=== PATIENT | female | born 1950 | race Caucasian/White ===

== ENCOUNTER 2017-03-18 14:55 | Outpatient (CLI) | payer MEDICARE ==
--- NOTE | 2017-03-19 17:12 | Ultrasound Report ---
PELVIC ULTRASOUND: 03/18/2017 CLINICAL HISTORY: Pelvic pain. Patient's last menstrual cycle was 12 years ago. TECHNIQUE: Transabdominal pelvic ultrasound performed for global evaluation. Transvaginal pelvic ul trasound performed for detailed evaluation. Real-time scanning performed and static images obtained. The uterus measures 6.6 cm x 4.5 cm x 4.8 cm for a volume of 74.6 mL. In the anterior aspect of the uterine fundus is noted a mildly heterogeneous round mass that is displ acing the central inner uterine cavity posteriorly. This mass represents a uterine fibroid and measu res 4.3 cm x 3.4 cm x 4.2 cm. It is definitely an intramural fibroid. Since it does abut against th e anterior aspect of the central inner uterine cavity, cannot exclude the possibility of a submucous component. Within the cervix is a fluid collection within the cervical canal. This appears to be no n-complex fluid. Ovaries bilaterally are mildly atrophic. They have a normal parenchymal pattern. Right ovary measur es 2.4 cm x 1.5 cm x 1.7 cm for a volume of 3.2 mL. Left ovary measures 1.5 cm x 1.1 cm x 1.0 cm for a volume of 0.86 mL. No free fluid is noted in the cul-de-sac. IMPRESSION: UTERINE FUNDUS IS ENLARGED A RESULT OF AN INTRAMURAL FIBROID WITHIN ITS ANTERIOR ASPECT. THIS FIB ROID MEASURES 4.3 CM X 3.4 CM X 4.2 CM. IT PRODUCES MILD POSTERIOR DISPLACEMENT OF THE CENTRAL INNER UTERINE CAVITY. OVARIES BILATERALLY ARE MILDLY ATROPHIC AND WITHIN NORMAL LIMITS IN REGARD TO THEIR PARENCHYMAL PATTE RN. NONSPECIFIC, NON-COMPLEX FLUID IS NOTED PRODUCING MILD DISTENTION OF THE CERVICAL CANAL. JOB #: [id number] EXT JOB #:[id number]
== END 2017-03-18 14:56 | disposition home or self-care (01) ==
LOC: DI 14:55
PROVIDERS: ATTEND Nurse Practitioner Family
DX: D25.1 Intramural leiomyoma of uterus (principal); N83.312 Acquired atrophy of left ovary; N83.311 Acquired atrophy of right ovary
CPT/HCPCS: 76830; 76856

== ENCOUNTER 2017-11-26 10:18 | Outpatient (CLI) | payer MEDICARE ==
--- NOTE | 2017-11-26 19:52 | Ultrasound Report ---
DATE OF SERVICE: 11/26/2017 RIGHT BREAST ULTRASOUND: 11/26/2017 CLINICAL INDICATION: Painful palpable abnormality. TECHNIQUE: Real-time scanning was performed with financial representative static images obtained. Ultrasound of the region of painful palpable abnormality identified by the patient was performed. Heterogeneous parenchyma is seen. No discrete solid or cystic lesion is identified. No sonographically suspicious findings are appreciated. IMPRESSION: Negative examination. RECOMMENDATIONS: Routine annual screening unless otherwise clinically indicated. BIRADS category 1 negative. TD: 11/26/2017 20:51
--- NOTE | 2017-11-26 19:56 | Mammography Report ---
DATE OF SERVICE: 11/26/2017 DIGITAL DIAGNOSTIC BILATERAL MAMMOGRAM: 11/26/2017 CLINICAL INDICATION: Painful palpable abnormality 12 o'clock right breast. TECHNIQUE: Bilateral CC, laterally exaggerated CC, MLO views, right true lateral view. A marker was placed at the site of tender palpable abnormality identified in the right breast by the patient. The patient describes that the abnormality has become smaller and less painful over the intervening 2 weeks since it was discovered. COMPARISON: 06/18/2016, 02/25/2015, 03/11/2012, 01/02/2010. The breasts again demonstrate heterogeneously dense fibroglandular parenchyma bilaterally. Punctate, typically benign calcifications are present. No suspicious masses, clustered microcalcifications, or regions of architectural distortion are identified. Specifically, no mammographic abnormality is appreciated at the 12 o'clock position of the right breast, at the site indicated by the marker. Please also refer to right breast ultrasound of the same day. IMPRESSION: Benign findings. RECOMMENDATIONS: Routine annual screening unless otherwise clinically indicated. BIRADS category 2 benign findings. STANDARD QUALIFYING STATEMENTS 1. This examination was reviewed with the aid of Computed-Aided Detection (CAD). 2. A negative or benign imaging report should not delay biopsy if clinically suspicious findings are present. Consider surgical consultation if warranted. More than 5% of cancers are not identified by imaging. 3. Dense breasts may obscure an underlying neoplasm. TD: 11/26/2017 20:55
== END 2017-11-26 10:19 | disposition home or self-care (01) ==
LOC: DI 10:18
PROVIDERS: ATTEND Physician Assistant
DX: N64.4 Mastodynia (principal); N63.10 Unspecified lump in the right breast, unspecified quadrant
CPT/HCPCS: 76642; 77066

== ENCOUNTER 2018-03-04 11:16 | Outpatient (CLI) | payer MEDICARE ==
[2018-03-04] MEDS ORDERED: IOPAMIDOL-300 100 ML VIAL ONE (11:37)
[2018-03-04 12:01] LABS: CREATININE 0.6 mg/dL (0.4-1.0)
[2018-03-04] MEDS ORDERED: IOPAMIDOL-300 100 ML VIAL IVP ONE (12:25)
--- NOTE | 2018-03-04 12:48 | CT Report ---
CT NECK WITH CONTRAST: 03/04/2018 CLINICAL INDICATION: Neck infection, pharyngeal pain, swelling. TECHNIQUE: Axial CT images of the neck were obtained with 80 mL Isovue 300 intravenously. COMPARISON: No previous CT is available for comparison. FINDINGS: The visualized orbital structures are unremarkable. There is an air fluid level in the right maxillary sinus, with mucosal thickening, compatible with acute on chronic sinus disease. The salivary glands and thyroid gland appear unremarkable. There are mildly enlarged bilateral jugulodigastric lymph nodes. No pharyngeal abscess is identified. The prevertebral soft tissues are unremarkable. The trachea is widely patent. Limited evaluation of the lung apices demonstrates atelectasis. Osseous structures demonstrate degenerative changes. IMPRESSION: ACUTE ON CHRONIC RIGHT MAXILLARY SINUSITIS. MILDLY ENLARGED JUGULODIGASTRIC LYMPH NODES BILATERALLY, BUT NO EVIDENCE OF PHARYNGEAL ABSCESS. CT DOSE REDUCTION STATEMENT In accordance with CT protocol optimization, one or more of the following dose reduction techniques were utilized for this exam: automated exposure control, adjustment of mA and/or KV based on patient size, or use of iterative reconstructive technique. TD: 03/04/2018 12:48
== END 2018-03-04 11:17 | disposition home or self-care (01) ==
LOC: LAB 11:16
PROVIDERS: ATTEND Internal Medicine
DX: J02.9 Acute pharyngitis, unspecified (principal); R22.1 Localized swelling, mass and lump, neck; J01.00 Acute maxillary sinusitis, unspecified; J32.0 Chronic maxillary sinusitis; R59.0 Localized enlarged lymph nodes
CPT/HCPCS: 36415; 70491; 82565; Q9967

== ENCOUNTER 2020-06-28 07:00 | Outpatient (CLI) | payer MEDICARE ==
[2020-06-29 16:26] LABS: TRICHOMONAS VAGINALIS DNA NEGATIVE (NEGATIVE)
[2020-06-29 18:44] LABS: CANDIDA GROUP DNA NEGATIVE (NEGATIVE); CANDIDA KRUSEI DNA NEGATIVE (NEGATIVE); TRICHOMONAS VAGINALIS DNA NEGATIVE (NEGATIVE)
== END 2020-06-28 23:59 | disposition home or self-care (01) ==
LOC: LAB.R 07:00
PROVIDERS: ATTEND Obstetrics & Gynecology
DX: R10.2 Pelvic and perineal pain (principal); Z11.3 Encounter for screening for infections with a predominantly sexual mode of transmission
CPT/HCPCS: 87491; 87591; 87661; 87801

== ENCOUNTER 2020-07-12 16:48 | Outpatient (CLI) | payer MEDICARE ==
[2020-07-13 12:03] LABS: HEPATITIS B SURFACE ANTIGEN NON-REACTIVE (NON-REACTIVE); HEPATITIS C ANTIBODY NON-REACTIVE (NON-REACTIVE)
[2020-07-13 13:02] LABS: HIV AG/AB 4TH GEN NON-REACTIVE (NON-REACTIVE)
--- NOTE | 2020-07-13 15:00 | Ultrasound Report ---
PROCEDURE: Pelvic w/Transvaginal INDICATIONS: POSTMENOPAUSAL BLEEDING TECHNIQUE: Real-time scanning was performed of the pelvic organs, with image documentation. Additional endovagi nal scanning was necessary due to incomplete visualization of the adnexal and endometrial structures by transabdominal scanning. COMPARISON: Pelvic ultrasound 03/18/2017. FINDINGS: Transabdominal scanning: Limited scanning through the kidneys demonstrates no hydronephrosis. No pa thologic free abdominal or pelvic fluid. Endovaginal scanning: Uterus: Uterus measures 6.7 x 3.4 x 5.6 cm. There is an anterior intramural fibroid measuring approx imate 3.6 x 2.5 x 3.1 cm demonstrated. This demonstrates apparent mass effect on the fundal endometri um which is not well visualized. A submucosal component of the fibroid cannot be excluded. The remain federico of the endometrium is heterogeneous and ill-defined, measuring up to approximately 0.5 cm. Small nabothian cysts noted as well as minimal endocervical fluid. Ovaries: The ovaries are not discretely visualized. No adnexal masses identified. IMPRESSION: 1. Large intramural fibroid with apparent mass effect on the fundal endometrium which is not well vis ualized. A submucosal component of the fibroid cannot be excluded. 2. Indistinct appearance of the visualized endometrium measuring up to 0.5 cm which is slightly thick ened given history of postmenopausal bleeding. Further evaluation may be obtained with a pelvic MRI if clinically indicated. Reviewed by: Geronimo Ugalde MD on 07/13/2020 2:59 PM PDT Approved by: Geronimo Ugalde MD on 07/13/2020 2:59 PM PDT Station ID: [id number]
[2020-07-14 14:32] LABS: HSV 1 IGG TYPE SPECIFIC AB <0.90 index; HSV 2 IGG TYPE SPECIFIC AB 6.76 index
== END 2020-07-12 16:49 | disposition home or self-care (01) ==
LOC: DI 16:48
PROVIDERS: ATTEND Obstetrics & Gynecology
DX: D25.1 Intramural leiomyoma of uterus (principal); R93.89 Abnormal findings on diagnostic imaging of other specified body structures; Z11.3 Encounter for screening for infections with a predominantly sexual mode of transmission; R10.2 Pelvic and perineal pain
CPT/HCPCS: 36415; 76830; 76856; 81599; 86695; 86696; 86803; 87340; G0475; 87389

== ENCOUNTER 2020-08-05 14:49 | Outpatient (CLI) | payer MEDICARE ==
[2020-08-05 15:09] LABS: MEAN CORPUSCULAR HEMOGLOBIN 32.2 pg (27.0-31.0); MEAN CORPUSCULAR HGB CONC 33.9 g/dL (32.0-36.0); MEAN PLATELET VOLUME 9.1 fL (7.9-10.8); RED BLOOD COUNT 4.04 10^6/uL (4.20-5.40); RED CELL DISTRIBUTION WIDTH 13.2 % (12.0-15.0); WHITE BLOOD COUNT 7.8 x10^3/uL (4.8-10.8)
[2020-08-05 15:24] LABS: ALBUMIN 4.5 g/dL (3.2-5.5); ALBUMIN/GLOBULIN RATIO 1.4 (1.0-2.2); BILIRUBIN,TOTAL 0.4 mg/dL (0.2-1.0); CREATININE 0.8 mg/dL (0.4-1.0); TOTAL PROTEIN 7.8 g/dL (6.7-8.2)
== END 2020-08-05 14:50 | disposition home or self-care (01) ==
LOC: LAB 14:49
PROVIDERS: ATTEND Obstetrics & Gynecology
DX: Z01.818 Encounter for other preprocedural examination (principal); N94.89 Other specified conditions associated with female genital organs and menstrual cycle; N95.0 Postmenopausal bleeding; Z20.828 Contact with and (suspected) exposure to other viral communicable diseases
CPT/HCPCS: 36415; 80053; 85027; U0004

== ENCOUNTER 2020-08-10 09:29 | Day surgery (SDC) | payer MEDICARE ==
[2020-08-10] MEDS ORDERED: LACTATED RINGERS 1,000 ML IV ONE ×3 (10:08→12:45)
[2020-08-10] MEDS ORDERED: GABAPENTIN 400 MG CAPSULE ONE (10:11)
[2020-08-10] MEDS ORDERED: CELECOXIB 100 MG CAPSULE PO ONE (10:11)
[2020-08-10] MEDS ORDERED: ACETAMINOPHEN 1,000 MG/100 ML 100 ML IV ONE ×2 (10:11→11:35)
--- NOTE | 2020-08-10 10:50 | ANESTHESIA ---
Pre-Anesthesia VS, & Labs - Diagnosis uterine mass, post-menopausal bleeding - Procedure Myosure Hysteroscopy, D&C w/possible myomectomy Vital Signs: Temp Pulse Resp BP Pulse Ox 36.5 C 62 16 136/78 H 98 08/10/20 10:08 08/10/20 10:08 08/10/20 10:08 08/10/20 10:08 08/10/20 10:08 Height: 5 ft 6 in Weight (kg): 65.4 kg Body Mass Index: 23.2 BMI Classification: Healthy weight - NPO >8 hours - Is Patient ?: No - Lab Results Current Lab Results: Laboratory Tests 08/10/20 10:29: POC Whole Bld Glucose 85 Lab results reviewed: Yes Home Medications and Allergies Home Medications: Ambulatory Orders Calcium Carbonate/Vitamin D3 [Calcium 600 mg-Vit D3 10Mcg Tb] 1 each PO DAILY 08/04/20 Cholecalciferol (Vitamin D3) [Vitamin D3] 50 mcg PO DAILY 08/04/20 Fluoxetine HCl 20 mg PO DAILY 08/04/20 Magnesium 250 mg PO DAILY 08/04/20 Nortriptyline HCl 10 - 20 mg PO QPM 08/04/20 Calcium Carbonate/Vitamin D3 [Calcium 600 mg-Vit D3 10Mcg Tb] 1 each PO DAILY 08/04/20 Cholecalciferol (Vitamin D3) [Vitamin D3] 50 mcg PO DAILY 08/04/20 Fluoxetine HCl 20 mg PO DAILY 08/04/20 Magnesium 250 mg PO DAILY 08/04/20 Nortriptyline HCl 10 - 20 mg PO QPM 08/04/20 Allergies/Adverse Reactions: Allergies Allergy/AdvReac Type Severity Reaction Status Date / Time tetracycline Allergy Hives Verified 08/10/20 10:22 prednisone AdvReac Anxiety Verified 08/10/20 10:22 Anes History & Medical History - Anesthetic History Anesthesia Complications: reports: Post-Operative Nausea/Vomiting Family history of Anesthesia Complications: Denies Family history of Malignant Hyperthermia: Denies - Medical History Cardiovascular: reports: None Pulmonary: reports: Sleep apnea Gastrointestinal: reports: None Urinary: reports: None Musculoskeletal: reports: Osteoarthritis Endocrine/Autoimmune: reports: None Skin: reports: None - Surgical History General: Colonoscopy Exam General: Alert, Oriented x3, Cooperative Dental: WNL Mouth Opening: Greater than 4 Fingerbreadths Neck Mobility: Normal Mallampati classification: II Thyromental Distance: greater than 6 cm Respiratory: Lungs clear, Normal breath sounds, No respiratory distress Cardiovascular: Regular rate Mental/Cognitive Status: Alert/Oriented X3, Normal for patient Cognitive Status: Within normal limits Plan Anesthesia Type: General (back-up), MAC Consent for Procedure(s) Verified and Reviewed: Yes Code Status: Attempt Resuscitation ASA classification: 2-Mild systemic disease Is this case an emergency?: No
[2020-08-10] MEDS ORDERED: SILVER NITRATE APPLICATOR TOP ONE (11:21)
[2020-08-10] MEDS ORDERED: LIDOCAINE 1%-EPI 1:100000 20 ML MDV ONE (11:21)
[2020-08-10] MEDS ORDERED: MIDAZOLAM 2 MG/2 ML VIAL IVP ONE (11:35)
[2020-08-10] MEDS ORDERED: PROPOFOL 200 MG/20 ML VIAL IVP ONE (11:35)
[2020-08-10] MEDS ORDERED: METOCLOPRAMIDE 10 MG/2 ML VIAL IVP ONE (11:35)
[2020-08-10] MEDS ORDERED: DEXAMETHASONE 4 MG/ML VIAL IVP ONE (11:35)
[2020-08-10] MEDS ORDERED: LIDOCAINE-MPF 2% 5 ML VIAL IM ONE (11:35)
[2020-08-10] MEDS ORDERED: ONDANSETRON 4 MG/2 ML VIAL IVP ONE (11:35)
[2020-08-10] MEDS ORDERED: ePHEDrine 50 MG/ML VIAL IVP ONE (11:35)
[2020-08-10] MEDS ORDERED: LIDOCAINE 1%-EPI 1:100000 30 ML MDV SUBQ ONE (12:05)
[2020-08-10] MEDS ORDERED: VASOPRESSIN 20 UNIT/ML VIAL ONE (12:13)
[2020-08-10] MEDS ORDERED: VASOPRESSIN 20 UNIT/ML VIAL IVP ONE (12:16)
--- NOTE | 2020-08-10 13:14 | OPERATIVE REPORT ---
Operative Report - General Procedure Date: 08/10/20 Planned Procedure: Hysteroscopy D&C with possible polypectomy/myomectomy Pre-Op Diagnosis: Postcoital bleeding, endometrial mass Procedure Performed: Hysteroscopy D&C with polypectomy Post Op Diagnosis: Same - Procedure Note Primary Surgeon: Morales Juarez MD Anesthesia Provider: Morales Valencia CRNA Anesthesia Technique: General ET tube Pathology: Uterine contents IV Fluids (mL): 1,400 Estimated Blood Loss (mL): 5 Urine Output (mL): 50 Indications: Patient is a 69 yo here with postcoital bleeding and presence of an intrauterine mass. She underwent a pelvic us on 07/13/2020 that showed the uterine dimensions of 6.7x3.4x5.6 cm with a mass measuring 3.6x2.5x3.1 cm demonstrating mass effect on the fundal endometrium. The endometrium was descri bed as heterogeneous and ill-defined, measuring up to 5 mm in greatest dimension. Patient opted for hysteroscopy D&C with possible polypectomy/myomectomy to diagnosis and management. Findings: Lichen sclerosis of the exterior genitalia, improved from prior exam. Nulliparous cervix. Narrowed, nearly obliterated endometrial cavity with smooth, polypoid tissue with vascular markings at the right lateral aspect of the cavity. Complications: None - Other Other Information/Narrative: Risks benefits and alternatives to the procedure were reviewed. Consent was again confirmed. Patient was taken to the operating room where she underwent general anesthesia. She was positioned in dorsolithotomy position with legs resting in yellowfin stirrups. She was prepped and draped in the usual sterile fashion. Preoperative antibiotics were not indicated. Preoperative checklist was performed. Exam under anesthesia was performed. Speculum was placed in the vagina and the cervix was visualized. Single-tooth tenaculum was placed at the anterior cervical lip. Paracervical block was administered using a total of 20 cc of 1% lidocaine with epinephrine was injected at the 4:00 and 8:00 positions lateral to the portio of the cervix. The cervical os was serially dilated with Hegar dilators to accommodate the caliber of the diagnostic hysteroscope. The hysteroscope was inserted and findings were noted as above. Because of the unusual presentation of the uterine cavity, the hysteroscope was retracted to the level of the external cervical os and a careful survey was performed to assess for an alternative tract/passage. The hysteroscope was removed and a total of 8 cc of vasopressin (10/50 cc NS) was injected into the cervix to further relax the tissue. Survey was again performed and no alternative tracts were identified and appearance of endocervical canal was normal. Consistent with the ultrasound images, the endometrial cavity was nearly completely obliterated. Smooth, mucosal polypoid tissue was noted at the right aspect of the narrow cavity. The hysteroscopic morcellator was inserted through the operative port. The intrauterine polyps were morcellated under direct visualization. Uterine cavity was smooth at close of the procedure. Hysteroscope was removed. Sharp curettage D&C was performed with sharp curette. All instruments were removed from the uterus. Tenaculum was removed. Tenaculum sites were noted to be hemostatic. All instruments were removed from the vagina. Procedure was well-tolerated without complication. Fluid deficit: 430 cc NS
[2020-08-10 13:59] VITALS: BP 125/64
--- NOTE | 2020-08-10 13:59 | ANESTHESIA POST OP EVALUATION ---
Anesthesia Post Eval - Post Anesthesia Eval Vitals: Last Vital Signs Temp 36.5 C 08/10/20 13:22 Pulse 70 08/10/20 13:22 Resp 15 08/10/20 13:22 BP 123/66 08/10/20 13:22 Pulse Ox 96 08/10/20 13:22 CV Function Including HR & BP: positive: Stable Pain Control: positive: Satisfactory Nausea & Vomiting: positive: Negative Mental Status: positive: Baseline Respiratory Status: Airway Patent Hydration Status: Satisfactory Anesthesia Complications: positive: None (awake alert, stable. Directly to Phase two.)
== END 2020-08-10 09:30 | disposition home or self-care (01) ==
LOC: SDS 09:29
PROVIDERS: ATTEND Obstetrics & Gynecology
PROC: 0UDB7ZZ Extraction of Endometrium, Via Natural or Artificial Opening (ICD-10-PCS; 2020-08-10)
PROC: 0UB98ZZ Excision of Uterus, Via Natural or Artificial Opening Endoscopic (ICD-10-PCS; principal; 2020-08-10 11:15)
DX: N93.0 Postcoital and contact bleeding (principal); N84.0 Polyp of corpus uteri; L90.0 Lichen sclerosus et atrophicus; G47.30 Sleep apnea, unspecified
CPT/HCPCS: 58558; A9270; J0131; J2765; J7120

== ENCOUNTER 2020-10-20 07:26 | Day surgery (SDC) | payer MEDICARE ==
[2020-10-20] MEDS ORDERED: MIDAZOLAM 2 MG/2 ML VIAL ONE ×2 (07:59→09:26)
[2020-10-20] MEDS ORDERED: fentaNYL 250 MCG/5 ML VIAL ONE (07:59)
[2020-10-20] MEDS ORDERED: LACTATED RINGERS 1,000 ML IV ONE ×3 (08:04→09:33)
[2020-10-20] MEDS ORDERED: ONDANSETRON 4 MG/2 ML VIAL ONE (08:35)
[2020-10-20 09:54] VITALS: BP 100/53
[2020-10-20] MEDS ORDERED: ONDANSETRON ODT 4 MG TABLET ONE (10:31)
== END 2020-10-20 07:27 | disposition home or self-care (01) ==
LOC: SDS 07:26
PROVIDERS: ATTEND Surgery
PROC: 0DBE8ZX Excision of Large Intestine, Via Natural or Artificial Opening Endoscopic, Diagnostic (ICD-10-PCS; principal; 2020-10-20 08:30)
DX: Z12.11 Encounter for screening for malignant neoplasm of colon (principal); K57.30 Diverticulosis of large intestine without perforation or abscess without bleeding; K59.9 Functional intestinal disorder, unspecified; Z80.0 Family history of malignant neoplasm of digestive organs
CPT/HCPCS: 45380; J3010; J7120; Q0162

== ENCOUNTER 2021-05-22 08:57 | Outpatient (CLI) | payer MEDICARE ==
--- NOTE | 2021-05-23 12:58 | Mammography Report ---
BILATERAL DIGITAL SCREENING MAMMOGRAM 3D/2D WITH EXAGGERATED CC: 05/22/2021 CLINICAL: Family history of breast cancer. Comparison is made to exams dated: 11/26/2017 mammogram and 06/18/2016 mammogram - [facility]. The tissue of both breasts is heterogeneously dense. This may lower the sensitivity of ma mmography. There is a focal asymmetry with grouped punctate calcifications in the right breast at 12 o'clock mid dle depth. This is more prominent. No other significant masses, calcifications, or other findings are seen in either breast. IMPRESSION: INCOMPLETE: NEEDS ADDITIONAL IMAGING EVALUATION The focal asymmetry in the right breast is indeterminate. Additional views with possible ultrasound are recommended. This exam was interpreted at Station ID: [id number]. NOTE: For mammograms, a report in lay terms will be sent to the patient. Approximately 15% of breast malignancies will not be visualized mammographically. In the management of a palpable breast mass, a negative mammogram must not discourage biopsy of a clinically suspicious lesion. Electronically Signed By: Hernesto rodriguez/celeste:05/22/2021 10:29:53 ACR BI-RADS Category 0: Incomplete 3340F PARENCHYMAL PATTERN: (D) - The breast(s) demonstrate(s) heterogeneously dense fibroglandular parenchy ma. BI-RADS CATEGORY: (0) - 0 Mammo and [place] [id number] Immediate follow-up LATERALITY: (R)
== END 2021-05-22 08:58 | disposition home or self-care (01) ==
LOC: DI.S 08:57
DX: Z12.31 Encounter for screening mammogram for malignant neoplasm of breast (principal); Z80.3 Family history of malignant neoplasm of breast; N64.89 Other specified disorders of breast

== ENCOUNTER 2021-06-12 10:03 | Outpatient (CLI) | payer MEDICARE ==
--- NOTE | 2021-06-13 14:34 | Mammography Report ---
UNILATERAL RIGHT DIGITAL DIAGNOSTIC MAMMOGRAM 3D/2D: 06/12/2021 CLINICAL: Patient returns for magnification views of microcalcifications in the right breast. Comparison is made to exams dated: 05/22/2021 mammogram, 11/26/2017 mammogram, 11/26/2017 ultrasound, mammogram, 03/07/2015 mammogram, and 03/11/2012 mammogram - [facility]. The tissue of right breast is heterogeneously dense. This may lower the sensitivity of mammography. There are grouped fine punctate calcifications in the right breast at 12 o'clock posterior depth. The se are new compared to the 2018 mammogram. No other significant masses or calcifications are seen in the breast. The associated oval equal density asymmetry with obscured and indistinct margins in the right breast at 12 o'clock posterior depth is less prominent on additional views. IMPRESSION: INCOMPLETE: NEEDS ADDITIONAL IMAGING EVALUATION The oval equal density asymmetry in the right breast at 12 o'clock posterior depth is indeterminate. An ultrasound is recommended. The new grouped fine punctate calcifications in the right breast at 12 o'clock posterior depth are at a low suspicion for malignancy. A stereotactic biopsy is recommended. Ultrasound will be performed immediately following the current exam. This exam was interpreted at Station ID: [id number]. NOTE: For mammograms, a report in lay terms will be sent to the patient. Approximately 15% of breast malignancies will not be visualized mammographically. In the management of a palpable breast mass, a negative mammogram must not discourage biopsy of a clinically suspicious lesion. Electronically Signed By: Geronimo Ugalde M.D. ddp/:06/12/2021 10:57:16 ACR BI-RADS Category 0: Incomplete 3340F PARENCHYMAL PATTERN: (D) - The breast(s) demonstrate(s) heterogeneously dense fibroglandular parenchy ma. BI-RADS CATEGORY: (0) - 0 Ultrasound [id number] Immediate follow-up LATERALITY: (B)
--- NOTE | 2021-06-13 14:34 | Ultrasound Report ---
LIMITED ULTRASOUND OF RIGHT BREAST: 06/12/2021 CLINICAL: Patient returns today to evaluate a focal asymmetry in the right breast. Comparison is made to exams dated: 06/12/2021 mammogram, 05/22/2021 mammogram, 11/26/2017 mammogram, ultrasound, 06/18/2016 mammogram, and 03/07/2015 mammogram - [facility]. Color flow and real-time ultrasound of the right breast 12 o'clock region were performed on the areas of interest. Monroe scale images of the real-time examination were reviewed. There is a 0.7 cm x 0.3 cm x 0.5 cm oval cyst in the right breast at 12 o'clock posterior depth. Thi s oval cyst is hypoechoic with internal echoes and posterior acoustic enhancement. This may correlat e with mammography findings. Color flow imaging demonstrates that there is no vascularity present. IMPRESSION: SUSPICIOUS OF MALIGNANCY The 0.7 cm x 0.3 cm x 0.5 cm oval cyst in the right breast is consistent with a complicated cyst and is probably benign. Follow-up mammogram and ultrasound in 6 months are recommended. Future imaging is recommended as follows: 12/12/2021 mammogram and an ultrasound. A right breast stereotactic biopsy is recommended for microcalcifications seen on mammography. The findings were discussed with the patient at the conclusion of the study by Dr. Sheehan. This exam was interpreted at Station ID: [id number]. Electronically Signed By: Geronimo Ugalde M.D. ddp/:06/12/2021 11:57:01 Ultrasound BI-RADS: 4a Low suspicion for malignancy BI-RADS CATEGORY: (4a) - Low Susp None [id number] Immediate follow-up LATERALITY: ()
== END 2021-06-12 10:04 | disposition home or self-care (01) ==
LOC: DI 10:03
PROVIDERS: ATTEND Nurse Practitioner Family
DX: R92.0 Mammographic microcalcification found on diagnostic imaging of breast (principal); N60.01 Solitary cyst of right breast

== ENCOUNTER 2021-07-04 08:08 | Outpatient (CLI) | payer MEDICARE ==
[~2021-07-04 08:08] MED LIST: BUFFERED LIDOCAINE 10 ML SYRINGE ONE; LIDOCAINE MPF 1%-EPI 1:200000 30 ML VIAL ONE
[2021-07-04] MEDS ORDERED: LIDOCAINE MPF 1%-EPI 1:200000 30 ML VIAL ONE (08:12)
[2021-07-04] MEDS ORDERED: BUFFERED LIDOCAINE 10 ML SYRINGE ONE (08:12)
--- NOTE | 2021-07-07 09:41 | Mammography Report ---
DIGITAL TOMOGRAPHIC MAMMOGRAPHY GUIDED STEREOTACTIC GUIDED BIOPSY RIGHT BREAST USING VACUUM DEVICE WI TH MARKING DEVICE INSERTED AND POST DIGITAL MAMMOGRAPHIC IMAGIN07/04/2021 CLINICAL: Right breast stereotactic biopsy. PATIENT CONSENT: Risks (minor bleeding, infection, vasovagal reaction and repeat procedure), benefits and alternatives were explained to the patient and written informed consent was obtained. Correlation is made to exams dated: 06/12/2021 ultrasound, 06/12/2021 mammogram, 05/22/2021 mammogram, 11/26/2017 mammogram, 11/26/2017 ultrasound, and 06/18/2016 mammogram - [facility]. A stereotactic guided biopsy was performed for the concerning area of grouped fine calcifications loc ated in the right breast at 12 o'clock middle depth. This was described on the previous mammography report. The skin was prepped in the usual manner. Local anesthetic was administered to the access s ite. A small incision was made in the breast. The abnormality was approached using an upright digit al tomographic mammography unit. A 12 gauge biopsy needle was placed adjacent to the abnormality und er computer guidance and confirmatory stereotactic mammography images were obtained to document needl e placement. Once the needle was documented to be in the correct location, eight specimens were obta ined using the [employer] system. A Hydromark clip was inserted into the biopsy cavity. A skin clos ure strip and a sterile dressing were applied to the access site. Post procedure digital mammographi c imaging demonstrates the location device at the targeted area and partial removal of the calcificat ions. The specimens were sent to the laboratory for pathological analysis. IMPRESSION: STEREOTACTIC GUIDED BIOPSY BENIGN Stereotactic guided biopsy of the area of grouped fine calcifications in the right breast at 12 o'samantha ck middle depth was successful. Pathology indicates benign "breast tissue with rare microcalcifications associated with atrophic lobu les, negative for in situ and invasive malignancy." Pathology results are concordant with imaging fin dings. Multiple specimens have microcalcifications. A follow-up right mammogram and an ultrasound in 6 months is recommended to demonstrate stability and follow up on sonographic findings. Future imaging is recommended as follows: 12/13/2021 right mammo gram and an ultrasound. This exam was interpreted at Station ID: [id number]. Geronimo luciano,ar/:07/07/2021 08:56:08 BI-RADS CATEGORY: () - Mammo and [place] [id number] 6 month follow-up LATERALITY: (R)
== END 2021-07-04 08:09 | disposition home or self-care (01) ==
LOC: DI 08:08
PROVIDERS: ATTEND Nurse Practitioner Family
DX: R92.0 Mammographic microcalcification found on diagnostic imaging of breast (principal)
CPT/HCPCS: 19081

== ENCOUNTER 2022-02-22 09:19 | Day surgery (SDC) | payer MEDICARE ==
[~2022-02-22 09:19] MED LIST changes: -BUFFERED LIDOCAINE 10 ML SYRINGE ONE; +CYCLOPENTOLATE 1% OPHTH DROPS 2 ML ONE; +KETOROLAC 0.45% OPHTH DROPS ONE; -LIDOCAINE MPF 1%-EPI 1:200000 30 ML VIAL ONE; +PHENYLEPHRINE 2.5% OPHTH 2 ML DROPS ONE; +PROPARACAINE 0.5% OPHTH DROPS 15 ML ONE
[2022-02-22] MEDS ORDERED: LACTATED RINGERS 1,000 ML IV ONE (09:45)
--- NOTE | 2022-02-22 10:06 | ANESTHESIA ---
Pre-Anesthesia VS, & Labs - Diagnosis right eye senile combined cataract - Procedure right eye cataract extraction with IOL implant Vital Signs: Temp Pulse Resp BP Pulse Ox 36.0 C L 59 L 16 124/70 98 02/22/22 09:46 02/22/22 09:46 02/22/22 09:46 02/22/22 09:46 02/22/22 09:46 Height: 5 ft 6 in Weight (kg): 66 kg Body Mass Index: 23.5 BMI Classification: Healthy weight - NPO >8 hours - Is Patient ?: No Home Medications and Allergies Cholecalciferol (Vitamin D3) [Vitamin D3] 50 mcg PO DAILY 08/04/20 Fluoxetine HCl 20 mg PO DAILY 08/04/20 Nortriptyline HCl 10 - 20 mg PO QPM 08/04/20 Allergies/Adverse Reactions: Allergies Allergy/AdvReac Type Severity Reaction Status Date / Time tetracycline Allergy Hives Verified 02/22/22 09:23 prednisone AdvReac Anxiety Verified 02/22/22 09:23 Anes History & Medical History - Anesthetic History Anesthesia Complications: reports: Post-Operative Nausea/Vomiting - Medical History Cardiovascular: reports: None Pulmonary: reports: Sleep apnea (snores, does not use cpap) Gastrointestinal: reports: None Urinary: reports: None Neuro: reports: Headaches Musculoskeletal: reports: Osteoarthritis, Chronic back pain Endocrine/Autoimmune: reports: None Blood Disorders: reports: None Skin: reports: None Smoking Status: Former smoker (quit 18 years ago) Psychosocial: reports: No issues indicated History of Cancer?: No - Surgical History General: reports: Colonoscopy Gynecologic: reports: Dilation and currettage Exam General: Alert, Oriented x3, Cooperative, No acute distress Dental: WNL Mouth Openin Fingerbreadth Neck Mobility: Normal Mallampati classification: II Thyromental Distance: 4-6 cm Mental/Cognitive Status: Alert/Oriented X3, Normal for patient Plan Anesthesia Type: MAC Consent for Procedure(s) Verified and Reviewed: Yes Code Status: Attempt Resuscitation ASA classification: 2-Mild systemic disease Is this case an emergency?: No
[2022-02-22] MEDS ORDERED: MIDAZOLAM 2 MG/2 ML VIAL ONE (10:33)
[2022-02-22] MEDS ORDERED: EPINEPHrine 1 MG/ML AMP IR ONE (10:36)
[2022-02-22] MEDS ORDERED: TIMOLOL 0.5% OPHTH DROPS OPTH ONE (10:36)
[2022-02-22] MEDS ORDERED: BSS/LIDOCAINE/EPINEPHRINE 1 ML SYRINGE IO ONE (10:36)
[2022-02-22] MEDS ORDERED: BRIMONIDINE 0.2% OPHTH DROPS 5 ML OPTH ONE (10:36)
[2022-02-22] MEDS ORDERED: PROPARACAINE 0.5% OPHTH DROPS 15 ML EACHEYE ONE (10:36)
[2022-02-22] MEDS ORDERED: TRIAMCIN/MOXIFLOX OPHTHALMIC 0.6 ML VIAL IO ONE ×2 (10:36→11:34)
[2022-02-22] MEDS ORDERED: VANCOMYCIN OPHTHALMI 8MG/0.8ML 8 MG/0.8 ML SYRINGE IO ONE (10:37)
[2022-02-22] MEDS ORDERED: LACTATED RINGERS 950 ML IV ONE (10:46)
--- NOTE | 2022-02-22 10:53 | OPERATIVE REPORT ---
Operative Report - Other Other Information/Narrative: Date of Surgery: 02/22/22 Preop Dx: Visually significant cataract right eye. This was the first cataract surgery. Postop Dx: Same Procedure: Phacoemulsification with posterior chamber intraocular lens implant right eye Surgeon: Dr. Jaime Galeano Anesthesia: Monitored anesthesia care Complications: None Operative Indications: This is a 71-year-old F with progressive vision loss in the right eye due to 2+ nuclear sclerotic, 3+ cortical, and 2+ posterior subcapsular cataract. Best corrected visual acuity was 20/60 with glare to 20/630 vision in the right eye. Indications for surgery were: - Difficulty seeing street signs - Difficulty driving in low light or at night - Difficulty driving at night because of headlights from other vehicles - Difficulty with glare or bright lights in any situations The patient was consented at length concerning the risks and benefits of cataract surgery after which the patient expressed a desire to proceed with surgery. Operative Procedure: The patient was taken into OR#3 and placed under monitored anesthesia care. A surgical time-out was conducted confirming correct patient, correct procedure, and correct surgical site. The patient was given topical anesthesia and then prepped and draped in the usual sterile fashion. The eye was entered at the 6 and 3 oclock positions. Intracameral Shugarcaine was injected into the anterior chamber followed by a dispersive viscoelastic. A continuous-tear curvilinear capsulorhexis was performed. The nucleus was hydrodissected and phacoemulsified. The cortex was evacuated using automated infusion and aspiration. A cohesive viscoelastic was injected into the capsular bag and a 19.0 diopter intraocular lens was inserted into the bag. Infusion and aspiration were used to evacuate the viscoelastic materials from the eye. The wounds were hydrated and the eye inflated to physiologic pressure using balanced salt solution. Approximately 0.25ml of a mixture of triamcinolone and moxifloxacin was injected trans-sclerally into the vitreous in the inferotemporal quadrant using a 30 gauge cannula. An additional 0.55ml of a mixture of triamcinolone, moxifloxacin, and vancomycin was injected subconjunctivally in the superior quadrant for infection and inflammation prophylaxis. Wound integrity was checked with Weck-Brittni sponges. The patient was taken from the operating room in good condition and given post-op instructions.
--- NOTE | 2022-02-22 10:54 | ANESTHESIA POST OP EVALUATION ---
Anesthesia Post Eval - Post Anesthesia Eval Vitals: Last Vital Signs Temp 36.7 C 02/22/22 10:44 Pulse 66 02/22/22 10:53 Resp 16 02/22/22 10:53 BP 110/49 L 02/22/22 10:53 Pulse Ox 97 02/22/22 10:53 CV Function Including HR & BP: Stable Pain Control: Satisfactory Nausea & Vomiting: Negative Mental Status: Baseline Respiratory Status: Airway Patent Hydration Status: Satisfactory Anesthesia Complications: None
[2022-02-22 11:06] VITALS: BP 115/59
[2022-02-22] MEDS ORDERED: BSS/LIDOCAINE/EPINEPHRINE 1 ML VIAL ONE (11:34)
[2022-02-22] MEDS ORDERED: BRIMONIDINE 0.2% OPHTH DROPS 5 ML ONE (11:34)
[2022-02-22] MEDS ORDERED: TIMOLOL 0.5% OPHTH DROPS ONE (11:34)
== END 2022-02-22 09:20 | disposition home or self-care (01) ==
LOC: SDS 09:19
PROVIDERS: ATTEND Ophthalmology
DX: H25.811 Combined forms of age-related cataract, right eye (principal); G47.30 Sleep apnea, unspecified; Z87.891 Personal history of nicotine dependence
CPT/HCPCS: 66984; A9270; J3490; J7120

== ENCOUNTER 2022-04-10 08:34 | Outpatient (CLI) | payer MEDICARE ==
[2022-04-10 14:11] LABS: BASOPHILS # (AUTO) 0.1 10^3/uL (0.0-0.1); BASOPHILS % (AUTO) 1.2 %; EOSINOPHILS # (AUTO) 0.1 10^3/uL (0.0-0.7); EOSINOPHILS % (AUTO) 2.5 %; HCT - HEMATOCRIT 41.6 % (37.0-47.0); HGB - HEMOGLOBIN 13.4 g/dL (12.0-16.0); LYMPHOCYTES # (AUTO) 2.3 10^3/uL (1.5-3.5); MEAN CORPUSCULAR HEMOGLOBIN 31.4 pg (27.0-31.0); MEAN CORPUSCULAR HGB CONC 32.2 g/dL (32.0-36.0); MEAN CORPUSCULAR VOLUME 97.4 fL (81.0-99.0); MEAN PLATELET VOLUME 9.5 fL (7.9-10.8); MONOCYTES # (AUTO) 0.6 10^3/uL (0.0-1.0); MONOCYTES % (AUTO) 10.9 %; NEUTROPHILS # (AUTO) 2.1 10^3/uL (1.5-6.6); PLT - PLATELET COUNT 271 10^3/uL (130-450); RED BLOOD COUNT 4.27 10^6/uL (4.20-5.40); RED CELL DISTRIBUTION WIDTH 14.1 % (12.0-15.0); WHITE BLOOD COUNT 5.2 x10^3/uL (4.8-10.8)
[2022-04-10 14:26] LABS: ALBUMIN 4.2 g/dL (3.2-5.5); ALBUMIN/GLOBULIN RATIO 1.2 (1.0-2.2); ALKALINE PHOSPHATASE 52 IU/L (42-121); ALT ALANINE AMINOTRANSFERASE 18 IU/L (10-60); AST ASPARTATE AMINOTRANSFERASE 24 IU/L (10-42); BILIRUBIN,TOTAL 0.8 mg/dL (0.2-1.0); BUN - BLOOD UREA NITROGEN 16 mg/dL (6-20); CALCIUM 9.7 mg/dL (8.5-10.3); CARBON DIOXIDE - CO2 29 mmol/L (21-32); CHLORIDE 104 mmol/L (101-111); CHOLESTEROL 274 mg/dL; CREATININE 0.8 mg/dL (0.4-1.0); GFR - MDRD 71 (>89); GLUCOSE 97 mg/dL (70-100); HDL CHOLESTEROL 68 mg/dL; LDL CHOLESTEROL,CALCULATED 188 mg/dL; LDL/HDL RATIO 2.8 (<4.4); SODIUM 141 mmol/L (135-145); TOTAL PROTEIN 7.7 g/dL (6.7-8.2); TRIGLYCERIDES 90 mg/dL; VLDL CHOLESTEROL 18 mg/dL
[2022-04-10 14:28] LABS: CRP - C-REACTIVE PROTEIN < 1.0 mg/dL (0-1.0)
[2022-04-10 14:38] LABS: THYROID STIMULATING HORMONE 3.24 uIU/mL (0.34-5.60)
== END 2022-04-10 08:35 | disposition home or self-care (01) ==
LOC: LAB.S 08:34
PROVIDERS: ATTEND Physician Assistant
DX: R61 Generalized hyperhidrosis (principal); Z13.220 Encounter for screening for lipoid disorders
CPT/HCPCS: 36415; 80053; 80061; 83721; 84443; 85025; 86140

== ENCOUNTER 2022-07-19 06:55 | Day surgery (SDC) | payer MEDICARE ==
[2022-07-19] MEDS ORDERED: LACTATED RINGERS 1,000 ML IV ONE ×2 (07:10→08:29)
[2022-07-19] MEDS ORDERED: TRIAMCIN/MOXIFLOX OPHTHALMIC 0.6 ML VIAL IO ONE ×2 (07:18→08:21)
[2022-07-19] MEDS ORDERED: EPINEPHrine 1 MG/ML AMP ONE (07:18)
[2022-07-19] MEDS ORDERED: TIMOLOL 0.5% OPHTH DROPS ONE (07:19)
[2022-07-19] MEDS ORDERED: BSS/LIDOCAINE/EPINEPHRINE 1 ML VIAL ONE (07:19)
[2022-07-19] MEDS ORDERED: BRIMONIDINE 0.2% OPHTH DROPS 5 ML ONE (07:19)
[2022-07-19] MEDS ORDERED: VANCOMYCIN OPHTH (TOPICAL) 10 MG/ML SYRINGE ONE (07:19)
--- NOTE | 2022-07-19 07:50 | ANESTHESIA ---
Pre-Anesthesia VS, & Labs - Diagnosis L cataract - Procedure L PhacoIOL Vital Signs: Temp Pulse Resp BP Pulse Ox O2 Flow Rate 36.4 C L 64 16 155/83 H 97 0 07/19/22 07:10 07/19/22 07:10 07/19/22 07:10 07/19/22 07:10 07/19/22 07:10 07/19/22 07:10 Height: 5 ft 6 in Weight (kg): 67.3 kg Body Mass Index: 23.9 BMI Classification: Normal - NPO >8 hours - Is Patient ?: No Home Medications and Allergies Cholecalciferol (Vitamin D3) [Vitamin D3] 50 mcg PO DAILY 08/04/20 Fluoxetine HCl 20 mg PO DAILY 08/04/20 Nortriptyline HCl 10 - 20 mg PO QPM 08/04/20 Allergies/Adverse Reactions: Allergies Allergy/AdvReac Type Severity Reaction Status Date / Time tetracycline Allergy Hives Verified 07/19/22 07:16 prednisone AdvReac Anxiety Verified 07/19/22 07:16 Anes History & Medical History - Anesthetic History Anesthesia Complications: reports: No previous complications Family history of Anesthesia Complications: Denies Family history of Malignant Hyperthermia: Denies - Medical History Cardiovascular: reports: None Pulmonary: reports: Sleep apnea Gastrointestinal: reports: None Urinary: reports: None Neuro: reports: Headaches Musculoskeletal: reports: Osteoarthritis, Chronic back pain Endocrine/Autoimmune: reports: None Blood Disorders: reports: None Skin: reports: None Smoking Status: Former smoker (quit 18 years ago) - Surgical History General: reports: Colonoscopy Eyes Ears Nose Throat (EENT): reports: Cataracts Gynecologic: reports: Dilation and currettage Exam General: Alert, Oriented x3, Cooperative Dental: WNL Mouth Openin Fingerbreadth Neck Mobility: Normal Mallampati classification: I Thyromental Distance: 4-6 cm Respiratory: Lungs clear Cardiovascular: Regular rate Plan Anesthesia Type: MAC Consent for Procedure(s) Verified and Reviewed: Yes Code Status: Attempt Resuscitation ASA classification: 2-Mild systemic disease Is this case an emergency?: No
[2022-07-19] MEDS ORDERED: BRIMONIDINE 0.2% OPHTH DROPS 5 ML OPTH ONE (08:20)
[2022-07-19] MEDS ORDERED: BSS/LIDOCAINE/EPINEPHRINE 1 ML SYRINGE IO ONE (08:21)
[2022-07-19] MEDS ORDERED: TIMOLOL 0.5% OPHTH DROPS OPTH ONE (08:21)
[2022-07-19] MEDS ORDERED: EPINEPHrine 1 MG/ML AMP IR ONE (08:21)
[2022-07-19] MEDS ORDERED: VANCOMYCIN OPHTH (TOPICAL) 10 MG/ML SYRINGE TOP ONE (08:22)
[2022-07-19] MEDS ORDERED: PROPARACAINE 0.5% OPHTH DROPS 15 ML EACHEYE ONE (08:22)
[2022-07-19] MEDS ORDERED: MIDAZOLAM 2 MG/2 ML VIAL ONE (08:25)
[2022-07-19] MEDS ORDERED: fentaNYL 100 MCG/2 ML VIAL ONE (08:25)
--- NOTE | 2022-07-19 08:45 | OPERATIVE REPORT ---
Operative Report - Other Other Information/Narrative: Date of Surgery: 07/19/22 Preop Dx: Visually significant cataract left eye. Cataract surgery was performed in the right eye on . Postop Dx: Same Procedure: Phacoemulsification with posterior chamber intraocular lens implant left eye Surgeon: Dr. Jaime Galeano Anesthesia: Monitored anesthesia care Complications: None Operative Indications: This is a 71-year-old F with progressive vision loss in the left eye due to 2+ nuclear sclerotic, 3+ cortical, 1+ posterior subcapsular cataract. Best corrected visual acuity was 20/50 with glare to 20/200 vision in the left eye. Indications for surgery were: - Overall decrease in vision - Difficulty seeing street signs - Difficulty driving in low light or at night - Difficulty driving at night because of headlights from other vehicles - Difficulty with glare or bright lights in any situation The patient was consented at length concerning the risks and benefits of cataract surgery after which the patient expressed a desire to proceed with surgery. Operative Procedure: The patient was taken into OR#3 and placed under monitored anesthesia care. A surgical time-out was conducted confirming correct patient, correct procedure, and correct surgical site. The patient was given topical anesthesia and then prepped and draped in the usual sterile fashion. The eye was entered at the 6 and 3 oclock positions. Intracameral Shugarcaine was injected into the anterior chamber followed by a dispersive viscoelastic. A continuous-tear curvilinear capsulorhexis was performed. The nucleus was hydrodissected and phacoemulsified. The cortex was evacuated using automated infusion and aspiration. A cohesive viscoelastic was injected into the capsular bag and a 19.0 diopter intraocular lens was inserted into the bag. Infusion and aspiration were used to evacuate the viscoelastic materials from the eye. The wounds were hydrated and the eye inflated to physiologic pressure using balanced salt solution. Approximately 0.25ml of a mixture of triamcinolone and moxifloxacin was injected trans-sclerally into the vitreous in the inferotemporal quadrant using a 30 gauge cannula. An additional 0.55ml of a mixture of triamcinolone and moxifloxacin was injected subconjunctivally in the superior quadrant for infection and inflammation prophylaxis. Wound integrity was checked with Weck-Brittni sponges. The patient was taken from the operating room in good condition and given post-op instructions.
[2022-07-19 08:54] VITALS: BP 120/74
--- NOTE | 2022-07-19 08:59 | ANESTHESIA POST OP EVALUATION ---
Anesthesia Post Eval - Post Anesthesia Eval Vitals: Last Vital Signs Temp 36.4 C L 07/19/22 08:50 Pulse 60 07/19/22 08:50 Resp 16 07/19/22 08:50 BP 120/74 07/19/22 08:50 Pulse Ox 96 07/19/22 08:50 O2 Flow Rate 0 07/19/22 07:10 CV Function Including HR & BP: Stable Pain Control: Satisfactory Nausea & Vomiting: Negative Mental Status: Baseline Respiratory Status: Airway Patent Hydration Status: Satisfactory Anesthesia Complications: None
== END 2022-07-19 06:56 | disposition home or self-care (01) ==
LOC: SDS 06:55
PROVIDERS: ATTEND Ophthalmology
DX: H25.812 Combined forms of age-related cataract, left eye (principal); G47.30 Sleep apnea, unspecified; Z87.891 Personal history of nicotine dependence; Z96.1 Presence of intraocular lens; Z98.41 Cataract extraction status, right eye
CPT/HCPCS: 66984; A9270; J3490; J7120

== ENCOUNTER 2023-01-19 09:36 | Outpatient (CLI) | payer MEDICARE ==
--- NOTE | 2023-01-19 11:01 | XRAY Report ---
PROCEDURE: Ribs w/PA Chest RT INDICATIONS: RIB PAIN RIGHT SIDED TECHNIQUE: 2 views of the right ribs were acquired, along with a single view chest. COMPARISON: None FINDINGS: Surgical changes and devices: None. Bones and chest wall: A marker is placed upon the area of pain. At this site, no fractures are seen. No fractures or dislocations are seen elsewhere. No suspicious bony lesions. Age-appropriate degen erative changes are seen. The overlying soft tissues appear unremarkable. Lungs and pleura: No pleural effusions or pneumothorax. Lungs appear clear. Mediastinum: Mediastinal contours appear normal. Heart size is normal. IMPRESSION: No displaced rib fractures are pneumothorax is identified on this plain film series. Reviewed by: Andreas Merrill MD on 01/19/2023 10:00 AM [facility]ENCHO Approved by: Andreas Merrill MD on 01/19/2023 10:00 AM CHENCHO Station ID: [id number]
== END 2023-01-19 09:37 | disposition home or self-care (01) ==
LOC: DI 09:36
PROVIDERS: ATTEND Physician Assistant
DX: R07.81 Pleurodynia (principal)

== ENCOUNTER 2023-06-26 10:55 | Outpatient (CLI) | payer MEDICARE ==
--- NOTE | 2023-06-28 16:11 | Mammography Report ---
BILATERAL DIGITAL DIAGNOSTIC MAMMOGRAM 3D/2D: 06/26/2023 CLINICAL: Patient returns for a 18 month follow up of the right breast. Post biopsy. Due for bilatera l imaging. Comparison is made to exams dated: 07/04/2021 stereotactic biopsy, 06/12/2021 mammogram, 05/22/2021 mamm ogram, and 11/26/2017 mammogram - [facility]. Both breasts are heterogeneously dense, which may obscure small masses (category c / 51-75% glandular tissue). Stable right breast stereotactic biopsy site. Right breast biopsy clip. No significant masses, calcif ications, or other findings are seen in either breast. IMPRESSION: INCOMPLETE: NEEDS ADDITIONAL IMAGING EVALUATION No mammographic evidence of malignancy. Stable right breast stereotactic biopsy site. A targeted ultrasound of the previously seen cyst is recommended and will immediately follow. Based on the Tyrer Cuzick model (a risk assessment model) the patients lifetime risk is 7.5% and her 10 year risk is 5.6%. According to the ACR, ACS, and NCCN guidelines, an annual breast MRI exam zayda g with mammogram is recommended if the patients lifetime risk is 20% or greater. This exam was interpreted at Station ID: [id number]. NOTE: For mammograms, a report in lay terms will be sent to the patient. Approximately 15% of breast malignancies will not be visualized mammographically. In the management of a palpable breast mass, a negative mammogram must not discourage biopsy of a clinically suspicious lesion. Electronically Signed By: Nikko Contreras M.D. slc/:06/26/2023 12:18:45 ACR BI-RADS Category 0: Incomplete 3340F PARENCHYMAL PATTERN: (D) - The breast(s) demonstrate(s) heterogeneously dense fibroglandular parenchy ma. BI-RADS CATEGORY: (0) - 0 Ultrasound [id number] Immediate follow-up LATERALITY: (B)
--- NOTE | 2023-06-28 16:11 | Ultrasound Report ---
LIMITED ULTRASOUND OF RIGHT BREAST: 06/26/2023 CLINICAL: 6 month follow-up biopsy. Comparison is made to exams dated: 06/26/2023 mammogram, 06/12/2021 ultrasound, 06/12/2021 mammogram, mammogram, and 11/26/2017 mammogram - [facility]. Color flow and real-time ultrasound of the right breast 12 o'clock region were performed. Monroe scale images of the real-time examination were reviewed. There is a benign 0.4 cm x 0.4 cm x 0.2 cm oval cyst in the right breast at 12 o'clock posterior dept h 5 cm from the nipple. This oval cyst is anechoic. This abnormality is decreased in size and corre lates with mammography findings. Color flow imaging demonstrates that there is no vascularity presen t. IMPRESSION: BENIGN There is no sonographic evidence of malignancy. The 0.4 cm oval cyst in the right breast is decreased in size and is benign. Exam findings were conveyed to the patient. A 1 year screening mammogram is recommended. This exam was interpreted at Station ID: [id number]. Electronically Signed By: Nikko Contreras M.D. slc/:06/26/2023 12:21:01 Ultrasound BI-RADS: 2 Benign BI-RADS CATEGORY: (2) - 2 Mammogram [id number] 1 year screening LATERALITY: (B)
== END 2023-06-26 10:56 | disposition home or self-care (01) ==
LOC: DI 10:55
PROVIDERS: ATTEND Nurse Practitioner Family
DX: N60.01 Solitary cyst of right breast (principal)

== ENCOUNTER 2023-06-27 12:04 | Outpatient (CLI) | payer MEDICARE ==
--- NOTE | 2023-06-27 12:42 | XRAY Report ---
PROCEDURE: Abdomen 2 View X-Ray INDICATIONS: ABDOMINAL PAIN TECHNIQUE: 2 views of the abdomen were acquired. COMPARISON: None. FINDINGS: Surgical changes and devices: None. Bowel: No pneumoperitoneum. The bowel gas pattern is normal. Stool load within normal limits. Soft tissues: No masses; visualized solid organ contours appear normal in size. No suspicious abdom inal calcifications. Bones: No suspicious bony abnormalities. IMPRESSION: No acute abdominal pathology. Reviewed by: Janis Wray MD on 06/27/2023 12:41 PM PDT Approved by: Janis Wray MD on 06/27/2023 12:41 PM PDT Station ID: [id number]
== END 2023-06-27 23:59 | disposition home or self-care (01) ==
LOC: DI.S 12:04
PROVIDERS: ATTEND Physician Assistant Medical
DX: R10.9 Unspecified abdominal pain (principal)

== ENCOUNTER 2023-07-03 19:06 | Emergency (ER) | payer MEDICARE ==
[2023-07-03 19:28] LABS: BILIRUBIN,URINE NEGATIVE (NEGATIVE); GLUCOSE, URINE (UA) NEGATIVE (NEGATIVE); KETONES,URINE (UA) NEGATIVE (NEGATIVE); LEUKOCYTE ESTERASE, URINE NEGATIVE (NEGATIVE); NITRITE,URINE NEGATIVE (NEGATIVE); OCCULT BLOOD,URINE NEGATIVE (NEGATIVE); PROTEIN,URINE NEGATIVE (NEGATIVE); UROBILINOGEN,URINE 0.2 (NORMAL) E.U./dL (NORMAL)
[2023-07-03 19:31] LABS: CLARITY,URINE CLEAR (CLEAR)
--- NOTE | 2023-07-03 19:39 | ED Physician Documentation ---
PD HPI ABD PAIN - Stated complaint Stated Complaint: R SIDE PX - Chief complaint Chief Complaint: Abd Pain - History obtained from History obtained from: Patient - Additional information Additional information: 72-year-old woman with history of fibroidectomy but otherwise generally healthy. She presents with 9 days of generally worsening right upper quadrant pain with radiation to the back. No real association with eating or food, but she does not have an appetite. There is no nausea with it. She was constipated for a few days but took some laxatives and that has resolved. She went to the urgent care where she was diagnosed with shingles which she doubts the diagnosis of because there is no rash. They also reportedly did an x-ray without findings of obstruction. 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 HEENT: Cataracts - Present Medications Home Medications: Ambulatory Orders Medication Instructions Recorded Confirmed Cholecalciferol (Vitamin D3) 50 mcg PO DAILY 08/04/20 07/18/22 [Vitamin D3] Fluoxetine HCl 20 mg PO DAILY 08/04/20 07/18/22 Nortriptyline HCl 10 - 20 mg PO QPM 08/04/20 07/18/22 Ibuprofen [Motrin] 600 mg PO Q6H PRN #60 tab 08/10/20 07/18/22 Omeprazole 40 mg PO DAILY #30 cap 07/03/23 Dicyclomine [Bentyl] 10 mg PO QID PRN #30 tab 07/04/23 - Allergies Allergies/Adverse Reactions: Allergies Allergy/AdvReac Type Severity Reaction Status Date / Time tetracycline Allergy Hives Verified 07/03/23 19:19 prednisone AdvReac Anxiety Verified 07/03/23 19:19 - Social History Smoking Status: Former smoker (quit 18 years ago) PD ED PE NORMAL - Vitals Vital signs reviewed: Yes - General General: Alert and oriented X 3, No acute distress - Cardiac Cardiac: RRR, No murmur - Respiratory Respiratory: No respiratory distress, Clear bilaterally - Abdomen Abdomen: Other (Modestly tender in the right upper quadrant with equivocal Rosas sign) - Neuro Neuro: Alert and oriented X 3, Normal speech Results - Vitals Vitals: Vital Signs - 24 hr 07/03/23 07/03/23 07/04/23 19:09 22:19 00:10 Temperature 36.9 C Heart Rate 71 61 78 Respiratory 18 18 16 Rate Blood Pressure 180/92 H 160/64 H 164/84 H O2 Saturation 97 98 99 07/04/23 01:28 Temperature Heart Rate 74 Respiratory 17 Rate Blood Pressure 155/81 H O2 Saturation 97 Oxygen O2 Source Room air - Labs Labs: Laboratory Tests 07/03/23 07/03/23 07/03/23 19:15 19:52 19:52 WBC 7.9 RBC 4.46 Hgb 14.1 Hct 41.7 MCV 93.5 MCH 31.6 H MCHC 33.8 RDW 12.8 Plt Count 283 MPV 9.2 Neut # (Auto) 4.2 Lymph # (Auto) 2.6 [place] # (Auto) 0.8 Eos # (Auto) 0.2 Baso # (Auto) 0.1 Absolute Nucleated RBC 0.00 Nucleated RBC % 0.0 Sodium 137 Potassium 3.6 Chloride 102 Carbon Dioxide 28 Anion Gap 7.0 BUN 15 Creatinine 0.8 Estimated GFR (MDRD) 71 L Glucose 110 H Calcium 10.8 H Total Bilirubin 0.4 AST 19 ALT 15 Alkaline Phosphatase 70 Total Protein 7.7 Albumin 4.6 Globulin 3.1 Albumin/Globulin Ratio 1.5 Lipase 30 Urine Color STRAW Urine Clarity CLEAR Urine pH 6.0 Ur Specific [place] <=1.005 Urine Protein NEGATIVE Urine Glucose (UA) NEGATIVE Urine Ketones NEGATIVE Urine Occult Blood NEGATIVE Urine Nitrite NEGATIVE Urine Bilirubin NEGATIVE Urine Urobilinogen 0.2 (NORMAL) Ur Leukocyte Esterase NEGATIVE Ur Microscopic Review NOT INDICATED Urine Culture Comments NOT INDICATED - Rads (name of study) Right upper quadrant ultrasound with hepatic steatosis, no gallbladder abnormality Relevant Findings:: Final report received, EMP independent interpretation of test PD Medical Decision Making - ED course ED course: 72-year-old woman with generally worsening right upper quadrant pain rating to the back of 9 days duration, no clear link to eating. Some tenderness in the right upper quadrant, and no evidence of shingles at this time. CBC CMP are normal save mild hypercalcemia at 10.8. Urinalysis negative. Right upper quadrant ultrasound not showing a gallbladder source so CT angiography of the chest and CT abdomen pelvis ordered as the differential diagnosis still broad includes other intra-abdominal emergency or PE. Care to Dr. Fierro at 10 PM shift change pending results of CT, if negative can be safely discharged and would presume ulcer/gastritis And treat with PPI pending follow-up. Departure - Departure Disposition: 01 Home, Self Care Clinical Impression: Abdominal pain Condition: Good Record reviewed to determine appropriate education?: Yes Instructions: ED Abdominal Pain Female Non-Specific Abdominal Pain Prescriptions: Dicyclomine [Bentyl] 10 mg PO QID PRN #30 tab PRN Reason: Abdominal Pain Omeprazole 40 mg PO DAILY #30 cap Comments: Ultrasound shows fatty liver with normal liver enzymes on labs and otherwise really unremarkable labs. CT to look for a blood clot in your lungs and other problems in your abdomen and pelvis were negative/normal. By process of elimination I think you probably have either gastritis or an ulcer. IBS is also a possibility. Follow-up with your primary care physician, next available appointment. Consideration for referral for upper endoscopy, especially if symptoms are persistent. Return for new or worsening symptoms. I sent the prescriptions electronically to the [facility] in [place]. Forms: PCP List Discharge Date/Time: 07/04/23 01:28
--- OUTSIDE RECORDS SUMMARY | 2023-07-03 19:44 | EXTERNAL MEDICAL SUMMARY RPT | Continuity of Care Document ---
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 Role Phone Unavailable Unavailable Unavailable Richelle Shipley Pa-C Unavailable Unavailable Medications date description facility 2023-06-27 00:00 HYDROCODONE-ACETAMINOPHEN [facility] [place] 2023-06-27 00:00 DIAZEPAM [facility] [place] 2023-06-27 00:00 AMITRIPTYLINE HCL [facility] [place] 2023-06-27 00:00 DIAZEPAM [facility] [place] 2023-06-27 00:00 AMITRIPTYLINE HCL [facility] [place] 2023-06-27 00:00 valacyclovir [facility] [place] 2023-06-27 00:00 DIAZEPAM [facility] [place] 2023-06-27 00:00 HYDROCODONE-ACETAMINOPHEN [facility] [place] 2023-06-27 00:00 gabapentin [facility] [place] 2023-06-27 00:00 valacyclovir [facility] [place] 2023-06-27 00:00 valacyclovir [facility] [place] 2023-06-27 00:00 gabapentin [facility] [place] 2023-06-27 00:00 DIAZEPAM [facility] [place] 2023-06-27 00:00 AMITRIPTYLINE HCL [facility] [place] 2023-06-27 00:00 gabapentin [facility] [place] 2023-06-27 00:00 valacyclovir [facility] [place] 2023-06-27 00:00 HYDROCODONE-ACETAMINOPHEN [facility] [place] 2023-06-27 00:00 gabapentin [facility] [place] 2023-06-27 00:00 AMITRIPTYLINE HCL [facility] [place] Problems date description facility 2023-06-27 00:00 Abdominal pain [facility] [place] 2023-06-27 00:00 Abdominal pain, unspecified sit e [facility] [place] 2023-06-27 00:00 Unspecified abdominal pain [facility] [place] Procedures date description facility 2023-06-27 00:00 Visit Code Hold [facility] [place] 2023-06-27 00:00 POC URINALYSIS DIP [facility] [place] Results/Labs test date facility value unit notes Social History date description facility 2023-06-27 00:00 Former smoker [facility] [place] Vital Signs date measurement value units 2023-06-27 00:00 BMI 24.86 kg/m2 2023-06-27 00:00 BP_diastolic 86 mmHg 2023-06-27 00:00 BP_systolic 138 mmHg 2023-06-27 00:00 heart_rate 60 /min 2023-06-27 00:00 height_metric 166.37 cm 2023-06-27 00:00 height_standard 65.5 in 2023-06-27 00:00 respiration_rate 15 /min 2023-06-27 00:00 temperature_metric 37.06 C 2023-06-27 00:00 temperature_standard 98.7 F 2023-06-27 00:00 weight_metric 68.55 kg 2023-06-27 00:00 weight_standard 151.13 lb
[2023-07-03 19:57] LABS: BASOPHILS # (AUTO) 0.1 10^3/uL (0.0-0.1); BASOPHILS % (AUTO) 0.9 %; EOSINOPHILS # (AUTO) 0.2 10^3/uL (0.0-0.7); HCT - HEMATOCRIT 41.7 % (37.0-47.0); HGB - HEMOGLOBIN 14.1 g/dL (12.0-16.0); LYMPHOCYTES # (AUTO) 2.6 10^3/uL (1.5-3.5); LYMPHOCYTES % (AUTO) 33.2 %; MEAN CORPUSCULAR HEMOGLOBIN 31.6 pg (27.0-31.0); MEAN CORPUSCULAR HGB CONC 33.8 g/dL (32.0-36.0); MEAN CORPUSCULAR VOLUME 93.5 fL (81.0-99.0); MEAN PLATELET VOLUME 9.2 fL (7.9-10.8); MONOCYTES # (AUTO) 0.8 10^3/uL (0.0-1.0); MONOCYTES % (AUTO) 10.2 %; NEUTROPHILS # (AUTO) 4.2 10^3/uL (1.5-6.6); NEUTROPHILS % (AUTO) 53.4 %; PLT - PLATELET COUNT 283 10^3/uL (130-450); RED BLOOD COUNT 4.46 10^6/uL (4.20-5.40); RED CELL DISTRIBUTION WIDTH 12.8 % (12.0-15.0); WHITE BLOOD COUNT 7.9 x10^3/uL (4.8-10.8)
[2023-07-03 20:13] LABS: ALBUMIN 4.6 g/dL (3.2-5.5); ALBUMIN/GLOBULIN RATIO 1.5 (1.0-2.2); BILIRUBIN,TOTAL 0.4 mg/dL (0.2-1.0); CALCIUM 10.8 mg/dL (8.5-10.3); CREATININE 0.8 mg/dL (0.6-1.3); POTASSIUM 3.6 mmol/L (3.5-4.5); TOTAL PROTEIN 7.7 g/dL (6.4-8.9)
--- NOTE | 2023-07-03 21:41 | Ultrasound Report ---
PROCEDURE: Abdomen Limited INDICATIONS: Right upper quadrant pain TECHNIQUE: Real-time focused scanning was performed of the abdomen, with image documentation. COMPARISONS: None. FINDINGS: Liver: Liver is normal in size without focal hepatic lesions identified. There is increased hepatic e chogenicity compatible with steatosis. Gallbladder: Gallbladder demonstrates no stones, wall thickening, or pericholecystic fluid. Biliary ducts: No intrahepatic or extrahepatic biliary ductal dilatation. Pancreas: The visualized pancreas appears unremarkable sonographically. Pancreatic tail not well seen . Right kidney: Right kidney measures 10.4. No hydronephrosis. There is a small nonspecific echogenic p unctate focus measuring up to 0.2 cm without posterior acoustic shadowing. IMPRESSION: 1. No evidence of cholelithiasis or cholecystitis. 1. Increased hepatic echogenicity compatible with steatosis. Reviewed by: Geronimo Dwyer MD on 07/03/2023 9:40 PM PDT Approved by: Geronimo Dwyer MD on 07/03/2023 9:40 PM PDT Station ID: [id number]
[2023-07-03] MEDS ORDERED: PANTOPRAZOLE 40 MG TABLET PO STA (22:16)
--- NOTE | 2023-07-03 23:09 | CT Report ---
PROCEDURE: ANGIO CHEST W/WO INDICATIONS: Right chest pain, PE protocol CONTRAST: Omni 300 100ml TECHNIQUE: After the administration of intravenous contrast, 2 mm axial images were acquired from the pulmonary apices to the posterior costophrenic angles during the arterial phase. In addition, 1 mm lung kernel and 5 mm soft tissue kernel reconstructions were performed. 3-dimensional coronal oblique maximum int ensity projection (MIP) reformats, 8 mm axial MIP, and 5 mm coronal and sagittal MPR reformats were t hen performed through the thorax. For radiation dose reduction, the following was used: automated exp osure control, adjustment of mA and/or kV according to patient size. COMPARISON: Concurrent study of the abdomen and pelvis FINDINGS: Image quality: Diagnostic. Pulmonary arteries: Pulmonary arteries are normal in size, and demonstrate no intraluminal filling d efects to suggest central pulmonary embolism. Lower Neck: No lymphadenopathy by size criteria. Thyroid: Visualized thyroid demonstrates no discrete nodules. Axillae: No lymphadenopathy by size criteria. Chest Wall: Unremarkable. Bones: Visualized osseous structures demonstrate no suspicious lesions. Lungs and Airways: No acute consolidation. There is mild atelectasis and scarring the left lung bas e The trachea and central airways are patent. Pleura: No pneumothorax or pleural effusions. Heart: Heart size is normal. No pericardial effusion. Thoracic Vessels: The thoracic aorta is normal in size. Mediastinum and Shireen: No lymphadenopathy by size criteria. Esophagus: No wall thickening. There is a small hiatal hernia. Abdomen: Visualized upper abdominal solid organs appear normal in the early arterial phase of enhanc ement. IMPRESSION: 1. No evidence of pulmonary embolism. 2. No acute airspace consolidation. Reviewed by: Geronimo Dwyer MD on 07/03/2023 11:08 PM PDT Approved by: Geronimo Dwyer MD on 07/03/2023 11:08 PM PDT Station ID: [id number]
--- NOTE | 2023-07-03 23:12 | CT Report ---
PROCEDURE: ABDOMEN/PELVIS W INDICATIONS: IV only, right upper quadrant pain CONTRAST: Omni 300 100ml TECHNIQUE: After the administration of intravenous contrast, 5 mm thick sections acquired from the diaphragms to the symphysis. 5 mm thick coronal and sagittal reformats were acquired. For radiation dose reducti on, the following was used: automated exposure control, adjustment of mA and/or kV according to mauri ent size. COMPARISON: Concurrent right upper quadrant ultrasound and chest CT. FINDINGS: Image quality: Excellent. Lung bases:There is mild atelectasis and scarring in the left lower lobe. Heart: Heart is normal in size. There is a small hiatal hernia. ABDOMEN: Liver: No mass lesion. Gallbladder: Within normal limits without calcified gallstones. Biliary ducts: No biliary ductal dilatation. Pancreas: Unremarkable. Spleen: Normal in size. Adrenal Glands: No adrenal nodules. Kidneys and Ureters: No hydronephrosis. There are small bilateral renal cysts as well as a few addit ional small low-density foci within the kidneys which are too small to characterize but likely repres ent cysts. Stomach and Bowel: Stomach, small bowel loops, and colon are normal in caliber and wall thickness. T he appendix is normal. There is colonic diverticulosis without acute diverticulitis. Peritoneum: No abnormal intraperitoneal fluid. No free air. Ventral Wall: No hernia. Abdominal Nodes: No retroperitoneal or mesenteric adenopathy by size criteria. Vessels: Aorta and inferior vena cava are normal in size. PELVIS: Pelvic Organs: Unremarkable. Bladder: Unremarkable. Pelvic Nodes: No enlarged lymph nodes. Miscellaneous: No inguinal hernias. Bones: Visualized osseous structures demonstrate no suspicious lesions. IMPRESSION: 1. No definite acute intra-abdominal abnormality. Reviewed by: Geronimo Dwyer MD on 07/03/2023 11:11 PM PDT Approved by: Geronimo Dwyer MD on 07/03/2023 11:11 PM PDT Station ID: [id number]
[2023-07-03] MEDS ORDERED: LIDOCAINE VISCOUS 2% 15 ML ORAL SYRINGE MM STA (23:28)
[2023-07-03] MEDS ORDERED: FAMOTIDINE 20 MG/2 ML VIAL IVP STA (23:28)
[2023-07-03] MEDS ORDERED: MAG HYDROX/AL HYDROX/SIMETH 30 ML UDC PO STA (23:28)
[2023-07-03] MEDS ORDERED: diphenhydrAMINE ELIXIR 25 MG/10 ML UDC PO STA (23:28)
--- NOTE | 2023-07-04 01:00 | ED Physician Documentation ---
ED Addendum - Addendum Addendum: 07/04/23 00:58 Patient endorsed to me by Dr. Locke awaiting CTA chest and CT abdomen and pelvis results. Patient had persistent pain in the emergency department that was unresponsive to Magic mouthwash. After my discussion with her though she states that she is ready to go home and will follow-up with her primary care provider. She may need endoscopy to evaluate for ulcers. We also discussed possibility of irritable bowel syndrome as etiology given that she has had diarrhea intermittently for the past month alternating with constipation. Prescription for Bentyl sent to her pharmacy in addition to the Protonix that Dr. Joseph sent. Return precautions given. Plan to follow-up with primary care provider. Impression 1 abdominal pain Condition stable Disposition Home
[2023-07-04] MEDS ORDERED: DICYCLOMINE 10 MG CAPSULE PO STA (01:11)
[2023-07-04 01:31] VITALS: BP 155/81; O2SAT 97
[2023-07-04] MEDS ORDERED: iohexoL-300 100 ML VIAL IVP ONE (03:51)
== END 2023-07-04 01:28 | disposition home or self-care (01) ==
LOC: ED 19:06
DX: R10.11 Right upper quadrant pain (principal); Z87.891 Personal history of nicotine dependence
CPT/HCPCS: 36415; 71275; 74177; 76705; 80053; 81003; 83690; 85025; 96374; 99284; A9270; Q9967; 81001; 87086

== ENCOUNTER 2023-07-09 08:00 | Outpatient (CLI) | payer MEDICARE ==
[2023-07-12 05:13] LABS: ADENOVIRUS F 40/41 Not Detected (Not Detected); ASTROVIRUS Not Detected (Not Detected); C DIFFICILE TOXIN A/B Not Detected (Not Detected); CAMPYLOBACTER Not Detected (Not Detected); CRYPTOSPORIDIUM Not Detected (Not Detected); CYCLOSPORA CAYETANENSIS Not Detected (Not Detected); ENTAMOEBA HISTOLYTICA Not Detected (Not Detected); ENTEROAGGREGATIVE E COLI Not Detected (Not Detected); ENTEROPATHOGENIC E COLI Not Detected (Not Detected); ENTEROTOXIGENIC E COLI Not Detected (Not Detected); GIARDIA LAMBLIA Not Detected (Not Detected); NOROVIRUS GI/GII Detected (Not Detected); PLESIOMONAS SHIGELLOIDES Not Detected (Not Detected); ROTAVIRUS A Not Detected (Not Detected); SALMONELLA Not Detected (Not Detected); SAPOVIRUS Not Detected (Not Detected); SHIGA-TOXIN-PRODUCING E COLI Not Detected (Not Detected); SHIGELLA/ENTEROINVASIVE E COLI Not Detected (Not Detected); VIBRIO Not Detected (Not Detected); VIBRIO CHOLERAE Not Detected (Not Detected); YERSINIA ENTEROCOLITICA Not Detected (Not Detected)
== END 2023-07-09 23:59 | disposition home or self-care (01) ==
LOC: LAB 08:00
PROVIDERS: ATTEND Physician Assistant
DX: K52.9 Noninfective gastroenteritis and colitis, unspecified (principal); R10.9 Unspecified abdominal pain
CPT/HCPCS: 87045; 87046; 87427; 87507

== ENCOUNTER 2023-09-30 08:00 | Outpatient (CLI) | payer MEDICARE ==
--- NOTE | 2023-09-30 15:32 | XRAY Report ---
PROCEDURE: Cervical Spine 2 View INDICATIONS: CERVICAL STRAIN WITH RADICULOPATHY TECHNIQUE: 3 view(s) of the cervical spine were acquired. COMPARISON: None. FINDINGS: Bones: No fractures or dislocations to the C7 level. The lateral masses of C1 appear intact on the odontoid view. No suspicious bony lesions. Multilevel disc space narrowing and endplate osteophyte formation, as well as facet hypertrophy. Soft tissues: No prevertebral soft tissue swelling. IMPRESSION: Multilevel degenerative disc and facet disease. No acute fracture. No osseous lesion. If symptoms and/or clinical suspicion for pathology continue, further assessment with repeat plain film s, or advanced imaging (e.g., CT, MRI, or bone scan) is recommended for further assessment. Reviewed by: Nicanor Meyers MD on 09/30/2023 3:31 PM PST Approved by: Nicanor Meyers MD on 09/30/2023 3:31 PM [facility] Station ID: [id number]
== END 2023-09-30 23:59 | disposition home or self-care (01) ==
LOC: DI.S 08:00
PROVIDERS: ATTEND Physician Assistant Medical
DX: M50.10 Cervical disc disorder with radiculopathy, unspecified cervical region (principal); M47.22 Other spondylosis with radiculopathy, cervical region

== ENCOUNTER 2024-01-09 12:37 | Outpatient (CLI) | payer MEDICARE ==
--- NOTE | 2024-01-09 14:36 | MRI Report ---
PROCEDURE: Cervical Spine WO INDICATIONS: OCCIPITAL NEURALGIA, CERVICAL STRAIN W/RADICULOPAT TECHNIQUE: Noncontrast sagittal T1 spin echo and T2 fast spin echo, sagittal STIR, foraminal oblique sagittal T2 fast spin echo, and axial gradient echo or T2 fast spin echo through the cervical spine. COMPARISON: None. FINDINGS: Image quality: Excellent. Alignment and Curvature: There is loss of the expected cervical lordosis. Bone Marrow: Marrow demonstrates normal overall signal. Spinal Cord: Visualized spinal cord has normal size and signal. No cerebellar tonsillar herniation. Paraspinous Soft Tissues: No paravertebral masses. Prevertebral soft tissues are normal in thicknes s. C2-C3: Disc height is preserved. No canal stenosis. No foraminal stenosis. C3-C4: Moderate disc desiccation and height loss. Broad based disc bulge. Mild right foraminal narr owing. Severe left neuroforaminal stenosis. No canal stenosis. C4-C5: Moderate disc desiccation and height loss. Effacement of the anterior CSF space. No canal mar nosis. Mild bilateral foraminal stenosis. C5-C6: Severe disc desiccation and height loss. Broad based disc bulge. Effacement of the CSF space. Mild canal stenosis. Severe right and moderate left foraminal narrowing. C6-C7: Severe disc desiccation and height loss. Effacement of the CSF space. No canal stenosis. Ther e is a right lateral disc protrusion which measures 0.4 x 0.5 x 0.5 cm (series 3/image 7 and series 4 /image 32). This narrows the right lateral recess. There is moderate bilateral neural foraminal steno sis. C7-T1: Normal in appearance. IMPRESSION: 1. Multilevel disc desiccation and height loss most severe at C5-6 and C6-7. 2. Severe left neuroforaminal stenosis at C3-4 and severe right neuroforaminal stenosis at C5-6. 3. Right lateral disc protrusion which narrows the right lateral recess at C6-7. 4. Mild canal stenosis at C5-6. Reviewed by: Mitzi Moran MD on 01/09/2024 2:34 PM PDT Approved by: Mitzi Moran MD on 01/09/2024 2:34 PM PDT Station ID: [id number]
== END 2024-01-09 12:38 | disposition home or self-care (01) ==
LOC: DI 12:37
PROVIDERS: ATTEND Internal Medicine
DX: M54.81 Occipital neuralgia (principal); M50.11 Cervical disc disorder with radiculopathy, high cervical region; M48.02 Spinal stenosis, cervical region; M50.123 Cervical disc disorder at C6-C7 level with radiculopathy

== ENCOUNTER 2024-02-13 07:00 | Outpatient (CLI) | payer MEDICARE | END 2024-02-13 23:59 | disposition home or self-care (01) | LOC: LAB.S 07:00 | PROVIDERS: ATTEND Registered Nurse | DX: R35.0 Frequency of micturition (principal); R82.79 Other abnormal findings on microbiological examination of urine | CPT/HCPCS: 87086 ==

== ENCOUNTER 2024-02-19 12:40 | Outpatient (CLI) | payer MEDICARE ==
--- NOTE | 2024-02-20 09:33 | Ultrasound Report ---
ULTRASOUND OF LEFT AXILLA: 02/19/2024 CLINICAL: Palpable left axilla lump. Comparison is made to exams dated: 06/26/2023 ultrasound, 06/26/2023 mammogram, 07/04/2021 stereotactic biopsy, 06/12/2021 ultrasound, 06/12/2021 mammogram, and 05/22/2021 mammogram - [facility] nt. Color flow and real-time ultrasound of the left axilla were performed on the areas of interest. Gra y scale images of the real-time examination were reviewed. The left axilla was interogated and normal appearing lymph nodes are visualized. IMPRESSION: BENIGN No left axillary adenopathy. There is no sonographic evidence of malignancy. There is no sonographic abnormality seen in the left axilla to correspond with the area of clinical c oncern in the left axilla, however, clinical followup is recommended. Return to annual mammogram screening schedule is recommended. Future imaging is recommended as follo ws: 06/26/2024 screening mammogram. This exam was interpreted at Station ID: [id number]. Electronically Signed By: Mitzi chavez/:02/19/2024 13:25:04 Ultrasound BI-RADS: 2 Benign BI-RADS CATEGORY: (2) - 2 Mammogram [id number] return to screening LATERALITY: (B)
== END 2024-02-19 12:41 | disposition home or self-care (01) ==
LOC: DI 12:40
PROVIDERS: ATTEND Registered Nurse
DX: R22.2 Localized swelling, mass and lump, trunk (principal)